=== PATIENT | female | born 1955 | race Hispanic/Latino ===

== ENCOUNTER 2018-04-06 08:39 | Day surgery (SDC) | payer OTHER ==
[2018-04-04 14:56] VITALS: BP 116/55
[~2018-04-06] VITALS: Ht 157.5 cm; Wt 57.4 kg
[2018-04-06] VITALS (14 sets, daily range): BP systolic 114–143; BP diastolic 60–78
[~2018-04-06 08:39] MED LIST: LOSA25TA2 PO; ROSU5TAB PO
[2018-04-06] MEDS ORDERED: LACTATED RINGERS 1000ML 1,000 ML IV ONE (09:52)
[2018-04-06] MEDS: CEFTRIAXONE SODIUM 1 GM IVP PRN ×2 (10:08→13:15)
[2018-04-06] MEDS ORDERED: LIDOCAINE PF 2% 5ML ABBOJECT ONE (12:20)
[2018-04-06] MEDS ORDERED: PROPOFOL 10 MG/ML 20ML VIAL IV ONE (12:20)
[2018-04-06] MEDS ORDERED: ONDANSETRON HCL 4 MG/2 ML VIAL ONE (12:21)
[2018-04-06] MEDS ORDERED: EPHEDRINE SULFATE 50 MG/ML AMPULE ONE (13:33)
[2018-04-06] MEDS ORDERED: DEXAMETHASONE SOD PHOSPHATE 4 MG/ML 1ML VIAL ONE (13:45)
== END 2018-04-06 16:20 | disposition home or self-care (01) ==
LOC: DAH 08:39
PROVIDERS: ATTEND Urology
DX: N20.0 Calculus of kidney (principal); I10 Essential (primary) hypertension; Z79.899 Other long term (current) drug therapy; Z98.890 Other specified postprocedural states; E78.00 Pure hypercholesterolemia, unspecified
CPT/HCPCS: 50590; A4218; A4510; A4600; J0696; J1100; J2001; J2405; J2704; J3490; J7120

== ENCOUNTER 2018-04-07 18:15 | Emergency (ER) | payer OTHER ==
[2018-04-07 18:56] LABS: APPEARANCE,URINE CLOUDY (CLEAR); BILIRUBIN,URINE NEGATIVE (NEGATIVE); COLOR,URINE YELLOW (YELLOW); GLUCOSE, URINE (UA) NEGATIVE (NEGATIVE); KETONES,URINE NEGATIVE (NEGATIVE); LEUKOCYTE ESTERASE ,URINE TRACE (NEGATIVE); NITRATE,URINE NEGATIVE (NEGATIVE); OCCULT BLOOD,URINE SMALL (NEGATIVE); PH,URINE 7.5 (5.0-8.0); PROTEIN,URINE NEGATIVE (NEGATIVE); UROBILINOGEN,URINE 0.2 mg/dL (0.2-1.0)
[2018-04-07] MEDS ORDERED: ONDANSETRON HCL 4 MG/2 ML VIAL ONE (18:59)
[2018-04-07] MEDS ORDERED: FENTANYL CITRATE PF 50 MCG/1 ML 2ML VIAL ONE (19:00)
[2018-04-07 19:17] LABS: BASOPHILS % (AUTO) 0.4 % (0.0-5.0); EOSINOPHILS % (AUTO) 0.4 % (0.0-8.0); HEMATOCRIT 43.8 % (36-48); LYMPHOCYTES % (AUTO) 8.3 % (21.0-51.0); MEAN CORPUSCULAR HEMOGLOBIN 32.1 pg (27.0-33.0); MEAN CORPUSCULAR HGB CONC 34.6 g/dL (32.0-36.0); MEAN CORPUSCULAR VOLUME 92.8 fL (79-99); MONOCYTES % (AUTO) 7.2 % (3.0-13.0); NEUTROPHILS % (AUTO) 83.7 % (40.0-77.0); PLATELET COUNT (AUTO) 236 K/uL (130-400); RED BLOOD CELL COUNT(AUTO) 4.72 MIL/uL (4.00-5.50); RED CELL DISTRIBUTION WIDTH 13.2 % (11.0-15.5); WHITE BLOOD COUNT (AUTO) 13.5 K/uL (4.8-10.8)
[2018-04-07 19:18] LABS: CREATININE 0.9 mg/dL (0.5-1.5); POTASSIUM 3.6 mmol/L (3.5-5.1)
[2018-04-07 19:23] LABS: ALBUMIN 3.8 g/dL (3.5-5.0); BILIRUBIN,TOTAL 0.5 mg/dL (0.2-1.0); TOTAL PROTEIN, SERUM 7.8 g/dL (6.0-8.3)
[2018-04-07 19:52] LABS: BACTERIA,URINE Few /HPF (None Seen)
[2018-04-07 19:53] LABS: AMORPHOUS SEDIMENT,UR Moderate /LPF (None Seen); SQUAMOUS EPITHELIAL CELL,UR Rare /HPF (0-2)
[2018-04-07] MEDS ORDERED: TAMSULOSIN HCL 0.4 MG CAP.ER.24H ONE (20:46)
== END 2018-04-07 21:01 | disposition home or self-care (01) ==
LOC: EDH 18:15
DX: N23 Unspecified renal colic (principal); E86.0 Dehydration; R11.2 Nausea with vomiting, unspecified; I10 Essential (primary) hypertension; E78.5 Hyperlipidemia, unspecified; Z90.710 Acquired absence of both cervix and uterus; Z98.890 Other specified postprocedural states
CPT/HCPCS: 36415; 80053; 81001; 85025; 96374; 96375; 96376; 99284; J2405; J3010

== ENCOUNTER 2023-09-04 06:43 | Day surgery (SDC) | payer MEDICARE ==
[2023-08-31 13:39] VITALS: BP 110/52; PULSE 78; RESP 15
[2023-08-31 13:45] LABS: BASOPHILS # (AUTO) 0.04 K/uL (0.00-0.20); BASOPHILS % (AUTO) 0.7 % (0.0-5.0); EOSINOPHILS # (AUTO) 0.06 K/uL (0.00-0.70); HEMATOCRIT 39.1 % (36-48); IMMATURE GRANULOCYTE ABSOLUTE 0.02 K/uL (0-1); LYMPHOCYTES # (AUTO) 1.1 K/uL (1.0-4.8); LYMPHOCYTES % (AUTO) 18.5 % (21.0-51.0); MEAN CORPUSCULAR HEMOGLOBIN 31.3 pg (27.0-33.0); MEAN CORPUSCULAR HGB CONC 34.8 g/dL (32.0-36.0); MEAN CORPUSCULAR VOLUME 90.1 fL (79-99); MONOCYTES # (AUTO) 0.5 K/uL (0.1-1.0); MONOCYTES % (AUTO) 8.3 % (3.0-13.0); NEUTROPHILS # (AUTO) 4.1 K/uL (1.8-7.7); NEUTROPHILS % (AUTO) 71.2 % (40.0-77.0); PLATELET COUNT (AUTO) 299 K/uL (130-400); RED BLOOD CELL COUNT(AUTO) 4.34 MIL/uL (4.00-5.50); RED CELL DISTRIBUTION WIDTH 12.4 % (11.0-15.5); WHITE BLOOD COUNT (AUTO) 5.8 K/uL (4.8-10.8)
[2023-08-31 13:55] LABS: CREATININE 0.6 mg/dL (0.5-1.5); POTASSIUM 3.7 mmol/L (3.5-5.1)
[2023-09-04] VITALS (17 sets, daily range): BP systolic 102–129; BP diastolic 45–56; PULSE 54–62; RESP 12–17
[~2023-09-04] VITALS: Ht 154.9 cm; Wt 62.8 kg
[~2023-09-04 06:43] MED LIST changes: +ACET-2743 PO; +ALBU6.7H14 IH; +ALBUTEROL SULF NEB; +ALEN70TA80 PO; +AMLO-258 PO; +ASPI-1005 PO; +FLUT16H NASAL; +IBUP-2697 PO; +LORA10TA7 PO; +LOSA100T59 PO; -LOSA25TA2 PO; +METO-391 PO; +ROSU10TA22 PO; -ROSU5TAB PO
[2023-09-04] MEDS: LACTATED RINGERS 1000ML 1,000 ML IV ONE (07:29)
[2023-09-04] MEDS: 0.9%NACL 1000ML 1,000 ML IV ONE (07:30)
[2023-09-04] MEDS: 0.9%NACL 1000ML 1,000 ML IV SCH (07:30)
[2023-09-04] MEDS: CEFAZOLIN SODIUM 2 GM VIAL ONE (07:30)
[2023-09-04] MEDS ORDERED: FAMOTIDINE 20MG VIAL IV ONE (07:38)
[2023-09-04] MEDS ORDERED: ROCURONIUM BROMIDE 10MG/1ML 5ML VL ONE (07:41)
[2023-09-04] MEDS ORDERED: LIDOCAINE PF 100MG/5ML (2%) SYRINGE 5ML ONE (07:41)
[2023-09-04] MEDS ORDERED: GLYCOPYRROLATE 0.2 MG/ML 5 ML VIAL ONE (07:41)
[2023-09-04] MEDS ORDERED: PHENYLEPHRINE HCL 10 MG/ML 1ML VIAL IV ONE (07:41)
[2023-09-04] MEDS ORDERED: ONDANSETRON 4MG INJ ONE (07:41)
[2023-09-04] MEDS ORDERED: PROPOFOL 10 MG/ML 20ML VIAL IV ONE (07:41)
[2023-09-04] MEDS ORDERED: FENTANYL CITRATE PF 50 MCG/1 ML 2ML VIAL ONE (07:42)
[2023-09-04] MEDS: CEFAZOLIN SODIUM 1 GM VIAL IVPB PRN (08:20)
[2023-09-04] MEDS: BUPIVACAINE/PF 0.5% 30ML VIAL ONE (08:30)
[2023-09-04] MEDS ORDERED: NEOSTIGMINE METHYLSULFATE 1MG/ML IV ONE (08:38)
== END 2023-09-04 10:35 | disposition home or self-care (01) ==
LOC: DAH 06:43
PROVIDERS: ATTEND Surgery
DX: L72.3 Sebaceous cyst (principal); L72.0 Epidermal cyst; J45.909 Unspecified asthma, uncomplicated; E11.51 Type 2 diabetes mellitus with diabetic peripheral angiopathy without gangrene; I10 Essential (primary) hypertension; E78.5 Hyperlipidemia, unspecified; M81.0 Age-related osteoporosis without current pathological fracture; Z79.899 Other long term (current) drug therapy; Z98.890 Other specified postprocedural states; Z90.710 Acquired absence of both cervix and uterus; Z98.891 History of uterine scar from previous surgery; Z86.718 Personal history of other venous thrombosis and embolism; Z79.01 Long term (current) use of anticoagulants; Z79.82 Long term (current) use of aspirin
CPT/HCPCS: 80048; 85025; 36415; 93005; 11403; 88304; A4663; J7030 ×2; A4452; J7120; J3490 ×3; J3010; J2001; J2704; J2405; J2710; J0665; J2371; J0690; A4930; A4215; A4223; A6402; A4222; A4221; A4600